=== PATIENT | female | born 1990 | race American Indian/Alaskan Native ===

== ENCOUNTER 2018-02-09 01:35 | Outpatient (CLI) | payer MEDICAID ==
[2018-02-09 02:12] VITALS: BP 121/76
[2018-02-09] MEDS ORDERED: LACTATED RINGERS 1,000 ML IV ONE (02:22)
[2018-02-09 03:46] LABS: Bilirubin,Urine NEG (Negative); Blood,Urine NEG (Negative); Color,Urine Yellow (Yellow); Mucus,Urine FEW /HPF; Protein,Urine <15 mg/dL mg/dL (Negative); Urobilinogen,Urine < 2.0 mg/dL (<2.0)
--- NOTE | 2018-02-09 16:32 | Event Note ---
Date: 02/09/18 27 year old female at 33 weeks, 5 days gestation presents to L&D triage to rule out labor and rule out leaking of water. Patient states she had a mucous type vaginal discharge; pt. denies bleeding. Pt. reports active movement. Cervix is closed and thick and posterior. No regular contractions noted. Nitrazine negative. SSE performed: no pooling, negative fern test. Category 1 heart rate tracing. Active movement. Not in labor. UA negative. Patient was discharged home with labor precautions and discussion of daily movement counting. Advised pt. to keep her follow up apointment at [facility] and to return promptly if any symptoms of PTL or any other problems.
== END 2018-02-09 04:00 | disposition home or self-care (01) ==
LOC: TRG 01:35
PROVIDERS: ATTEND Obstetrics & Gynecology
DX: O47.03 False labor before 37 completed weeks of gestation, third trimester (principal); Z3A.33 33 weeks gestation of pregnancy
CPT/HCPCS: 59025; 81001